=== PATIENT | male | born 1985 | race African-American/Black ===

== ENCOUNTER 2018-08-29 07:50 | Inpatient (IN) | payer SELFPAY ==
[~2018-08-29] VITALS: Ht 177.8 cm; Wt 74.8 kg
[2018-08-29] MEDS ORDERED: MORPHINE SULFATE 4 MG/ML CPJ (NOT FOR IM USE) IV STA (08:12)
[2018-08-29] MEDS ORDERED: SODIUM CHLORIDE 0.9% 1,000 ML IV ONE ×2 (08:12→09:05)
[2018-08-29] MEDS ORDERED: ONDANSETRON HCL 4MG/2ML INJ IV STA ×2 (08:12→09:05)
[2018-08-29 08:40] LABS: HEMATOCRIT. 44.6 % (42.0-52.0); HEMOGLOBIN. 15.2 g/dL (14.0-18.0); MEAN CORPUSCULAR HEMOGLOBIN 31.8 pg (28.0-32.0); MEAN CORPUSCULAR VOLUME 93.6 fL (80.0-94.0); MEAN PLATELET VOLUME 9.6 fl (7.4-10.4); PLATELET 302 x1000/uL (130-400); RED BLOOD CELL COUNT 4.77 mill/uL (4.7-6.1); RED CELL DISTRIBUTION WIDTH 13.4 % (11.6-14.6)
[2018-08-29 08:43] LABS: CHLORIDE 107 mEq/L (98-107)
[2018-08-29 09:17] LABS: PLATELET ESTIMATE NORMAL
[2018-08-29 09:37] LABS: CLARITY URINE CLEAR (CLEAR); COLOR URINE YELLOW (YELLOW); KETONES URINE 1+ (NEGATIVE); LEUKOCYTE ESTERASE URINE NEGATIVE (NEGATIVE); NITRITE URINE NEGATIVE (NEGATIVE); OCCULT BLOOD URINE NEGATIVE (NEGATIVE); PROTEIN URINE NEGATIVE (NEGATIVE); SPECIFIC GRAVITY URINE 1.024 (1.005-1.030); UROBILINOGEN URINE 0.2 E.U./dL (0.2-1.0)
[2018-08-29 10:09] LABS: *AMPHETAMINES SCREEN URINE NEGATIVE (NEGATIVE)
[2018-08-29 10:10] LABS: *BARBITURATES SCREEN URINE NEGATIVE (NEGATIVE); CANNABINOID URINE SCREEN PRESUMTIVE POSITIVE (NEGATIVE); METHADONE URINE SCREEN NEGATIVE (NEGATIVE); OPIATES URINE SCREEN PRESUMTIVE POSITIVE (NEGATIVE); PHENCYCLIDINE URINE SCREEN NEGATIVE (NEGATIVE)
[2018-08-29 10:13] LABS: *COCAINE SCREEN URINE NEGATIVE (NEGATIVE)
[2018-08-29 10:21] LABS: *BENZODIAZEPINES SCREEN URINE NEGATIVE (NEGATIVE)
[2018-08-29] MEDS ORDERED: LORAZEPAM 2MG/ML CPJ IV ONE ×2 (10:30→12:45)
[2018-08-29] MEDS ORDERED: MAGNESIUM/ALUMINUM HYDROXIDE/SIMETHICONE 30ML UDC PO ONE (10:30)
[2018-08-29] MEDS ORDERED: FAMOTIDINE 20MG/2ML VIAL IV ONE (12:15)
[2018-08-29] MEDS ORDERED: CLONIDINE 0.1MG TABLET PO PRN (15:00)
[2018-08-29] MEDS ORDERED: MAGNESIUM/ALUMINUM HYDROXIDE/SIMETHICONE 30ML UDC PO PRN (15:00)
[2018-08-29] MEDS ORDERED: ACETAMINOPHEN 325MG TABLET PO PRN (15:00)
[2018-08-29 16:00] VITALS: BP 106/61
[2018-08-29 16:08] VITALS: BP 106/61
[2018-08-29] MEDS: ENOXAPARIN 40MG/0.4ML SYR SUBCUT SCH (16:41)
[2018-08-29] MEDS: METOCLOPRAMIDE HCL 10MG/2ML VIAL IV SCH ×2 (17:22→23:47)
[2018-08-29] MEDS ORDERED: MVI, ADULT NO.1 10 ML, FOLIC ACID 1 MG, THIAMINE HCL 100 MG in SODIUM CHLORIDE 0.9% 1,0... IV NR ×4 (17:30)
[2018-08-29] MEDS: ONDANSETRON HCL 4MG/2ML INJ IV PRN (21:04)
[2018-08-29] MEDS: FAMOTIDINE 20MG/2ML VIAL IV SCH (21:07)
[2018-08-30] MEDS: ONDANSETRON HCL 4MG/2ML INJ IV PRN ×2 (02:54→09:13)
[2018-08-30 04:00] VITALS: BP 122/74
[2018-08-30] MEDS: METOCLOPRAMIDE HCL 10MG/2ML VIAL IV SCH ×3 (06:04→17:16)
[2018-08-30 08:00] VITALS: BP 126/66
[2018-08-30] MEDS: FAMOTIDINE 20MG/2ML VIAL IV SCH ×2 (09:13→21:09)
[2018-08-30 12:00] VITALS: BP 139/87
[2018-08-30] MEDS: DEXT 5%/0.45% NACL KCL 20MEQ/L 1,000 ML IV SCH (14:36)
[2018-08-30 16:00] VITALS: BP 125/68
[2018-08-30] MEDS: ENOXAPARIN 40MG/0.4ML SYR SUBCUT SCH (17:00)
[2018-08-30 17:40] LABS: BASOPHILS % 0.6 % (0.0-2.0); EOSINOPHILS % 0.1 % (0.0-5.0); HEMATOCRIT. 41.2 % (42.0-52.0); HEMOGLOBIN. 14.1 g/dL (14.0-18.0); LYMPHOCYTES % 23.8 % (20.0-50.0); MEAN CORPUSCULAR VOLUME 93.7 fL (80.0-94.0); MEAN PLATELET VOLUME 9.1 fl (7.4-10.4); MONOCYTES % 7.7 % (2.0-8.0); NEUTROPHILS % 67.8 % (40.0-76.0); PLATELET 248 x1000/uL (130-400); RED BLOOD CELL COUNT 4.39 mill/uL (4.7-6.1); RED CELL DISTRIBUTION WIDTH 13.1 % (11.6-14.6)
[2018-08-30 17:51] LABS: CHLORIDE 106 mEq/L (98-107)
[2018-08-30 20:00] VITALS: BP 126/77
[2018-08-31] MEDS: METOCLOPRAMIDE HCL 10MG/2ML VIAL IV SCH ×2 (00:11→05:24)
[2018-08-31] MEDS: DEXT 5%/0.45% NACL KCL 20MEQ/L 1,000 ML IV SCH (00:11)
[2018-08-31 08:00] VITALS: BP 145/81
[2018-08-31] MEDS: FAMOTIDINE 20MG/2ML VIAL IV SCH (08:34)
[2018-08-31 10:28] VITALS: BP 132/70
== END 2018-08-31 10:42 | disposition home or self-care (01) | DRG 249 ==
LOC: ER 07:50 → 6EST 13:24 → ENRESERV 13:50 → 6EST 08-30 14:25
PROVIDERS: ADMIT Internal Medicine Geriatric Medicine; ATTEND Internal Medicine Geriatric Medicine
DX: A08.4 Viral intestinal infection, unspecified (principal); F12.10 Cannabis abuse, uncomplicated; R73.9 Hyperglycemia, unspecified
CPT/HCPCS: 36415; 74018; 80048; 80305; 83036; 96374; 99285; J1650; J2060; J2270; J2405; J2765; J3411; J3490; J7030

== ENCOUNTER 2020-12-31 21:05 | Emergency (ER) | payer MEDICAID ==
[~2020-12-31] VITALS: Ht 175.3 cm; Wt 65.0 kg
[2020-12-31 22:18] VITALS: BP 123/69
[2021-01-01] MEDS ORDERED: SULF1TAB48 PO (00:43)
[2021-01-01] MEDS ORDERED: HYDR-4622 TP (00:43)
== END 2021-01-01 00:55 | disposition home or self-care (01) ==
LOC: ER 21:05
DX: L73.9 Follicular disorder, unspecified (principal)
CPT/HCPCS: 99283